=== PATIENT | female | born 2000 | race African-American/Black ===

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

== ENCOUNTER 2023-05-14 21:32 | Observation (INO) | payer MEDICAID ==
[~2023-05-14] VITALS: Ht 165.1 cm; Wt 95.7 kg
== END 2023-05-14 23:30 | disposition home or self-care (01) ==
LOC: LDRP 21:32
PROVIDERS: ADMIT Obstetrics & Gynecology; ATTEND Obstetrics & Gynecology
DX: O36.8130 Decreased fetal movements, third trimester, not applicable or unspecified (principal); O26.853 Spotting complicating pregnancy, third trimester; O99.891 Other specified diseases and conditions complicating pregnancy; M54.9 Dorsalgia, unspecified; Z3A.36 36 weeks gestation of pregnancy
CPT/HCPCS: 59025; 76818; 81002; 94760; G0378